=== PATIENT | female | born 1990 | race Caucasian/White ===

== ENCOUNTER 2019-05-04 20:46 | Emergency (ER) | payer OTHER ==
[~2019-05-04] VITALS: Ht 165.1 cm; Wt 56.7 kg
[2019-05-04] MEDS ORDERED: PRENATE ELITE1 EAC2 PO (21:02)
== END 2019-05-04 23:15 | disposition home or self-care (01) ==
LOC: ER 20:46
DX: N93.8 Other specified abnormal uterine and vaginal bleeding (principal)

== ENCOUNTER 2019-10-25 15:11 | Inpatient (IN) | payer OTHER ==
[~2019-10-25] VITALS: Ht 154.9 cm; Wt 2.7 kg
[~2019-10-25 15:11] MED LIST: PRENATE ELITE1 EAC2 PO
== END 2019-11-26 16:10 | disposition home or self-care (01) | DRG 788 ==
LOC: LDR 11-24 08:05 → O/R 11-24 16:53 → OB/GYN 11-24 18:00
PROVIDERS: ADMIT Obstetrics & Gynecology
PROC: 4A1HXCZ Monitoring of Products of Conception, Cardiac Rate, External Approach (ICD-10-PCS; 2019-11-24)
PROC: 10D00Z1 Extraction of Products of Conception, Low, Open Approach (ICD-10-PCS; principal; 2019-11-24 15:30)
DX: O82 Encounter for cesarean delivery without indication (principal); O65.4 Obstructed labor due to fetopelvic disproportion, unspecified; Z3A.39 39 weeks gestation of pregnancy; Z37.0 Single live birth

== ENCOUNTER 2019-11-23 16:37 | Outpatient (CLI) | payer OTHER | END 2019-11-24 08:54 | disposition still patient (30) | LOC: OBS/DEL 16:37 | DX: O47.1 False labor at or after 37 completed weeks of gestation (principal) ==

== ENCOUNTER 2024-11-26 09:17 | Emergency (ER) | payer OTHER ==
[~2024-11-26] VITALS: Ht 162.6 cm; Wt 72.6 kg
[2024-11-26 10:26] LABS: URINE APPEARANCE Clear; URINE BILIRRUBIN Negative (NEGATIVE); URINE BLOOD Large; URINE COLOR Yellow; URINE GLUCOSE Negative (NEGATIVE); URINE KETONE Trace (NEGATIVE); URINE LEUKOCYTE Negative; URINE NITRATE Negative; URINE PROTEIN Negative (NEGATIVE)
[2024-11-26 10:27] LABS: URINE BACTERIA 1275.3 uL (0.0-1933); URINE EPITHELIAL CELLS 60.3 uL (0.0-38.8); URINE RBC 14.5 uL (0.0-20.8); URINE WBC 24.8 uL (0.0-23.2)
[2024-11-26 10:35] LABS: URINE CAST 0.14 uL (0.0-1.40)
[2024-11-26 10:42] LABS: HEMATOCRIT 39.4 % (36.0-45.00); HEMOGLOBIN 13.4 g/dL (12.0-15.00); MEAN CORPUSCULAR HEMOGLOBIN 31.4 pg (27.00-32.0); MEAN CORPUSCULAR HGB CONC 34.1 g/dl (32.0-36.0); PLATELET COUNT 194 K/uL (150-450); RED BLOOD COUNT 4.28 M/uL (4.00-6.00)
[2024-11-26] MEDS ORDERED: ACETAMINOPHEN 500 MG GEL..CAP PO ONE (11:17)
== END 2024-11-26 12:16 | disposition home or self-care (01) ==
LOC: ER 09:20
PROVIDERS: General Practice
DX: O20.9 Hemorrhage in early pregnancy, unspecified (principal); O23.41 Unspecified infection of urinary tract in pregnancy, first trimester; N39.0 Urinary tract infection, site not specified; Z3A.10 10 weeks gestation of pregnancy

== ENCOUNTER 2024-12-02 09:46 | Emergency (ER) | payer OTHER ==
[~2024-12-02] VITALS: Ht 162.6 cm; Wt 72.6 kg
[2024-12-02 11:12] LABS: HEMOGLOBIN 12.5 g/dL (12.0-15.00); MEAN CORPUSCULAR HEMOGLOBIN 31.2 pg (27.00-32.0); MEAN CORPUSCULAR HGB CONC 33.9 g/dl (32.0-36.0); PLATELET COUNT 180 K/uL (150-450); RED BLOOD COUNT 4.02 M/uL (4.00-6.00); RED CELL DISTRIBUTION WIDTH 12.9 % (11.5-14.5)
[2024-12-02 11:23] LABS: URINE APPEARANCE Cloudy; URINE BILIRRUBIN Negative (NEGATIVE); URINE BLOOD Moderate; URINE COLOR Yellow; URINE GLUCOSE Negative (NEGATIVE); URINE KETONE Trace (NEGATIVE); URINE LEUKOCYTE Trace; URINE NITRATE Negative; URINE PROTEIN Negative (NEGATIVE)
[2024-12-02 11:24] LABS: URINE EPITHELIAL CELLS 134.1 uL (0.0-38.8); URINE RBC 13.6 uL (0.0-20.8); URINE WBC 13.9 uL (0.0-23.2)
== END 2024-12-02 15:14 | disposition home or self-care (01) ==
LOC: ER 09:48
PROVIDERS: General Practice
DX: O20.8 Other hemorrhage in early pregnancy (principal); Z3A.11 11 weeks gestation of pregnancy; N93.9 Abnormal uterine and vaginal bleeding, unspecified

== ENCOUNTER 2025-02-01 09:55 | Outpatient (CLI) | payer OTHER | END 2025-02-01 09:56 | disposition home or self-care (01) | LOC: PRENATAL 09:55 | PROVIDERS: ATTEND Obstetrics & Gynecology Maternal & Fetal Medicine | DX: O44.00 Complete placenta previa NOS or without hemorrhage, unspecified trimester (principal); O34.219 Maternal care for unspecified type scar from previous cesarean delivery; Z3A.20 20 weeks gestation of pregnancy ==

== ENCOUNTER 2025-03-29 08:51 | Outpatient (CLI) | payer OTHER | END 2025-03-29 08:53 | disposition home or self-care (01) | LOC: PRENATAL 08:51 | PROVIDERS: ATTEND Obstetrics & Gynecology Maternal & Fetal Medicine | DX: O26.849 Uterine size-date discrepancy, unspecified trimester (principal); O36.8199 Decreased fetal movements, unspecified trimester, other fetus; O34.219 Maternal care for unspecified type scar from previous cesarean delivery; Z3A.29 29 weeks gestation of pregnancy ==

== ENCOUNTER → 2025-05-10 08:08 | Outpatient (CLI) | payer OTHER | END | disposition home or self-care (01) | LOC: PRENATAL 08:08 | PROVIDERS: ATTEND Obstetrics & Gynecology Maternal & Fetal Medicine | DX: O26.849 Uterine size-date discrepancy, unspecified trimester (principal); O34.219 Maternal care for unspecified type scar from previous cesarean delivery; O24.419 Gestational diabetes mellitus in pregnancy, unspecified control; Z3A.35 35 weeks gestation of pregnancy ==

== ENCOUNTER 2025-06-09 07:00 | Inpatient (IN) | payer OTHER ==
[~2025-06-09] VITALS: Ht 160 cm; Wt 3.2 kg
[2025-06-09 09:50] LABS: BASO % 0.3 % (0.1-1.2); EOS # 0.09 (0.04-0.54); EOS % 0.9 % (0.7-7.0); LYMPH # 1.78 (1.18-3.74); LYMPH % 17.0 % (19.3-53.1); MEAN PLATELET VOLUME 10.60 fl (9.4-12.4); MONO # 0.55 (0.24-0.82); MONO % 5.3 % (4.7-12.5); NEUT # 7.91 (1.56-6.13); NEUT % 75.4 % (34.0-71.1); RED CELL DISTRIBUTION WIDTH 14.8 % (11.6-14.4)
[2025-06-09 10:10] LABS: INR < 0.93
[2025-06-09 10:45] LABS: URINE APPEARANCE Clear; URINE BILIRRUBIN Negative (NEGATIVE); URINE BLOOD Negative; URINE COLOR Yellow; URINE GLUCOSE Negative (NEGATIVE); URINE KETONE Negative (NEGATIVE); URINE LEUKOCYTE Trace; URINE NITRATE Negative; URINE PROTEIN Negative (NEGATIVE); URINE UROBILINOGEN 1.0 E.U./dl
[2025-06-09 10:54] LABS: URINE BACTERIA 195.5 uL (0.0-1933); URINE EPITHELIAL CELLS 19.5 uL (0.0-38.8); URINE RBC 4.6 uL (0.0-20.8); URINE WBC 10.7 uL (0.0-23.2)
[2025-06-09 11:01] LABS: URINE CAST 0.14 uL (0.0-1.40)
[2025-06-12 20:04] VITALS: BP 95/59
[2025-06-12] MEDS ORDERED: RINGERS SOLUTION,LACTATED 1,000 ML IV SCH (20:45)
[2025-06-12] MEDS ORDERED: ERYTHROMYCIN BASE OPHT 1GM EACH TUBE OP ONE (21:00)
[2025-06-12] MEDS ORDERED: OXYTOCIN 10 UNITS/ML VIAL ONE (21:00)
[2025-06-12] MEDS ORDERED: CEFAZOLIN SODIUM 1,000 MG VIAL ONE (21:53)
[2025-06-12] MEDS ORDERED: MORPHINE SULFATE 4 MG/ML VIAL IV ONE (23:40)
[2025-06-13] MEDS ORDERED: MORPHINE SULFATE 4 MG/ML VIAL IV ONE (00:10)
[2025-06-13] MEDS ORDERED: MORPHINE SULFATE 4 MG/ML VIAL IV SCH (01:00)
[2025-06-13 02:49] VITALS: BP 115/57
[2025-06-13] MEDS ORDERED: KETOROLAC TROMETHAMINE 60 MG VIAL IM ONE (04:00)
[2025-06-13 07:09] LABS: BASO % 0.2 % (0.1-1.2); EOS # 0.01 (0.04-0.54); EOS % 0.1 % (0.7-7.0); LYMPH # 1.37 (1.18-3.74); LYMPH % 9.6 % (19.3-53.1); MEAN PLATELET VOLUME 11.10 fl (9.4-12.4); MONO # 0.51 (0.24-0.82); MONO % 3.6 % (4.7-12.5); NEUT # 12.24 (1.56-6.13); NEUT % 86.1 % (34.0-71.1); RED CELL DISTRIBUTION WIDTH 14.7 % (11.6-14.4)
[2025-06-13] MEDS ORDERED: DOCUSATE SODIUM 100MG CAP PO SCH (09:00)
[2025-06-13] MEDS ORDERED: ACETAMINOPHEN 325 MG TABLET PO PRN (09:00)
[2025-06-13] MEDS ORDERED: PNV,CALCIUM 72/IRON/FOLIC ACID 1 TAB TABLET PO SCH (09:00)
[2025-06-13] MEDS ORDERED: SIMETHICONE 125 MG CAPSULE PO SCH (09:00)
[2025-06-13] MEDS ORDERED: OxyCODONE HCL 5 MG TABLET (ROXICODONE) PO SCH (09:00)
[2025-06-13 09:40] VITALS: BP 105/70
[2025-06-13 16:12] VITALS: BP 124/81
[2025-06-14 00:33] VITALS: BP 119/72
[2025-06-14 08:01] VITALS: BP 110/68
== END 2025-06-14 13:11 | disposition home or self-care (01) | DRG 785 ==
LOC: OB/GYN 06-12 20:29 → LDR 06-12 20:29 → O/R 06-12 22:15 → OB/GYN 06-13 00:33 → LDR 06-13 07:00 → OB/GYN 06-14 13:11
PROVIDERS: ADMIT Obstetrics & Gynecology; ATTEND Obstetrics & Gynecology
PROC: 0UB70ZZ Excision of Bilateral Fallopian Tubes, Open Approach (ICD-10-PCS; 2025-06-12)
PROC: 4A1HXCZ Monitoring of Products of Conception, Cardiac Rate, External Approach (ICD-10-PCS; 2025-06-12)
PROC: 10D00Z1 Extraction of Products of Conception, Low, Open Approach (ICD-10-PCS; principal; 2025-06-12 20:00)
DX: O34.211 Maternal care for low transverse scar from previous cesarean delivery (principal); Z30.2 Encounter for sterilization; Z37.0 Single live birth; Z3A.38 38 weeks gestation of pregnancy